=== PATIENT | female | born 1985 | race Two or more races ===

== ENCOUNTER 2016-08-20 17:58 | Emergency (ER) | payer BC, OTHER ==
[~2016-08-20] VITALS: Ht 147.3 cm; Wt 65.9 kg
[~2016-08-20 17:58] MED LIST: None per pt; PREN1TAB60 PO
[2016-08-20 18:40] LABS: HEMOGLOBIN 11.7 g/dL (11.7-16.4)
[2016-08-20 18:46] LABS: BLOOD UREA NITROGEN 7 mg/dL (7-18)
[2016-08-20] MEDS ORDERED: SODIUM CHLORIDE FLUSH 10ML SYR IVF ONE (19:30)
[2016-08-20] MEDS ORDERED: OMNIPAQUE 350 MG/ML, 100ML BOTTLE ONE (20:28)
[2016-08-20 21:39] VITALS: BP 102/54
== END 2016-08-20 21:43 | disposition home or self-care (01) ==
LOC: ED 21:36
DX: O26.892 Other specified pregnancy related conditions, second trimester (principal); R07.89 Other chest pain; K80.20 Calculus of gallbladder without cholecystitis without obstruction
CPT/HCPCS: 36415; 71010; 71275; 76700; 80048; 80076; 81001; 82040; 83690; 84484; 85025; 85379; 93005; 99285; Q9967

== ENCOUNTER 2016-10-24 17:19 | Outpatient (CLI) | payer BC ==
[~2016-10-24] VITALS: Ht 149.9 cm; Wt 67.2 kg
[2016-10-24 17:33] VITALS: BP 109/56
[2016-10-24] MEDS ORDERED: TERBUTALINE 1 MG/ML, 1ML ONE (17:56)
[2016-10-24] MEDS ORDERED: TERBUTALINE 1 MG/ML, 1ML IV ONE (18:00)
[2016-10-24] MEDS ORDERED: PLEASE ENTER HEIGHT AND WEIGHT MC SCH (18:30)
== END 2016-10-24 19:06 | disposition home or self-care (01) ==
LOC: LDOP 17:19
PROVIDERS: ATTEND Obstetrics & Gynecology
DX: O26.893 Other specified pregnancy related conditions, third trimester (principal); O62.9 Abnormality of forces of labor, unspecified; O60.03 Preterm labor without delivery, third trimester; R10.9 Unspecified abdominal pain; Z3A.36 36 weeks gestation of pregnancy
CPT/HCPCS: 59025; 81003; 87086; 96372; 99211; J3105; G0463

== ENCOUNTER 2016-11-11 16:30 | Outpatient (CLI) | payer BC ==
[~2016-11-11] VITALS: Ht 149.9 cm; Wt 68.2 kg
[2016-11-11 17:34] VITALS: BP 116/61
[2016-11-11] MEDS ORDERED: FAMO20TA37 PO (17:46)
[2016-11-11] MEDS ORDERED: ACET-1600 PO (17:47)
[2016-11-11 18:25] LABS: BLOOD UREA NITROGEN 7 mg/dL (7-18)
[2016-11-11 18:28] LABS: ASPARTATE AMINO TRANSFERASE 29 U/L (15-37)
[2016-11-11] MEDS ORDERED: MAGN400O4 PO (20:16)
[2016-11-11] MEDS ORDERED: RANI150T8 PO (20:18)
== END 2016-11-11 20:26 | disposition home or self-care (01) ==
LOC: LDOP 16:30
PROVIDERS: ATTEND Obstetrics & Gynecology
DX: O26.893 Other specified pregnancy related conditions, third trimester (principal); O26.833 Pregnancy related renal disease, third trimester; O26.613 Liver and biliary tract disorders in pregnancy, third trimester; K80.20 Calculus of gallbladder without cholecystitis without obstruction; N13.30 Unspecified hydronephrosis; N20.0 Calculus of kidney; Z3A.37 37 weeks gestation of pregnancy
CPT/HCPCS: 36415; 59025; 76705; 76770; 80053; 81001; 82150; 83690; 84550; 85025; 99211; G0463

== ENCOUNTER 2016-11-17 17:01 | Emergency (ER) | payer BC ==
[~2016-11-17] VITALS: Ht 149.9 cm; Wt 68.6 kg
[~2016-11-17 17:01] MED LIST changes: +ACET-1600 PO; +FAMO20TA37 PO; +MAGN400O4 PO; +RANI150T8 PO
[2016-11-17 17:02] VITALS: BP 122/75
== END 2016-11-17 18:19 | disposition short-term general hospital (02) ==
LOC: ED 17:14
DX: Z53.21 Procedure and treatment not carried out due to patient leaving prior to being seen by health care provider (principal)

== ENCOUNTER 2016-11-17 17:17 | Observation (INO) | payer BC ==
[~2016-11-17] VITALS: Ht 149.9 cm; Wt 68.3 kg
[2016-11-17 17:29] VITALS: BP 121/71
[2016-11-17] MEDS ORDERED: LACTATED RINGERS 1,000 ML IV SCH ×2 (18:00→18:30)
[2016-11-17] MEDS ORDERED: MAALOX/HYOSCYAMINE/LIDOCAINE 45 ML BOTTLE PO ONE (18:00)
[2016-11-17 18:25] LABS: ASPARTATE AMINO TRANSFERASE 82 U/L (15-37); BLOOD UREA NITROGEN 5 mg/dL (7-18)
[2016-11-17] MEDS ORDERED: MEPERIDINE/PF 100 MG/ML ONE (20:15)
[2016-11-17] MEDS ORDERED: PROMETHAZINE 25 MG/ML, 1ML ONE ×2 (20:15→21:37)
[2016-11-17] MEDS ORDERED: PROMETHAZINE 25 MG/ML, 1ML IM ONE (20:30)
[2016-11-17] MEDS ORDERED: MEPERIDINE/PF 100 MG/ML IM PRN (20:30)
== END 2016-11-17 21:10 | disposition home or self-care (01) ==
LOC: LDOP 17:17 → LDIP 17:55
PROVIDERS: ADMIT Obstetrics & Gynecology; ATTEND Obstetrics & Gynecology
DX: O26.899 Other specified pregnancy related conditions, unspecified trimester (principal); R10.30 Lower abdominal pain, unspecified; Z3A.00 Weeks of gestation of pregnancy not specified
CPT/HCPCS: 36415; 59025; 80053; 82150; 83690; 84550; 85025; 96360; 96361; 99211; G0378; J7120; G0463

== ENCOUNTER 2016-11-20 18:35 | Outpatient (CLI) | payer BC ==
[~2016-11-20] VITALS: Ht 149.9 cm; Wt 68.6 kg
== END 2016-11-20 19:41 | disposition home or self-care (01) ==
LOC: LDOP 18:35
PROVIDERS: ATTEND Obstetrics & Gynecology
DX: O46.93 Antepartum hemorrhage, unspecified, third trimester (principal); O26.893 Other specified pregnancy related conditions, third trimester; R10.9 Unspecified abdominal pain; Z3A.39 39 weeks gestation of pregnancy
CPT/HCPCS: 59025; 99211; G0463

== ENCOUNTER 2016-11-20 23:04 | Inpatient (IN) | payer BC ==
[~2016-11-20] VITALS: Ht 149.9 cm; Wt 68.5 kg
[2016-11-20] MEDS ORDERED: LACTATED RINGERS 1,000 ML IV SCH (23:21)
[2016-11-20] MEDS ORDERED: D5%-LACTATED RINGERS 1,000 ML IV SCH (23:21)
[2016-11-20] MEDS ORDERED: OXYTOCIN 30U/ 0.9% NaCL 500ML 500 ML IV ONE (23:21)
[2016-11-20] MEDS ORDERED: FENTANYL PF 100 MCG/2ML IV PRN (23:30)
[2016-11-20] MEDS ORDERED: ONDANSETRON 2MG/ML, 2ML IVPush PRN (23:30)
[2016-11-20] MEDS ORDERED: METOCLOPRAMIDE 5 MG/ML, 2ML IVPush PRN (23:30)
[2016-11-20] MEDS ORDERED: SODIUM CITRATE/CITRIC ACID 30 ML UDC PO PRN (23:30)
[2016-11-20] MEDS ORDERED: OXYTOCIN 30U/ 0.9% NaCL 500ML 500 ML ONE (23:33)
[2016-11-20] MEDS ORDERED: FENTANYL PF 100 MCG/2ML ONE (23:33)
[2016-11-20] MEDS ORDERED: NEWBORN KIT ONE (23:34)
[2016-11-20] MEDS: FENTANYL PF 100 MCG/2ML IVPush PRN (23:43)
[2016-11-20 23:46] VITALS: BP 125/58
[2016-11-21] MEDS ORDERED: FENTANYL/BUPIV./NS/PF 250 ML EPIDCONT ONE (00:05)
[2016-11-21] MEDS ORDERED: BUPIVACAINE/PF 0.25% ONE (00:05)
[2016-11-21] MEDS ORDERED: FENTANYL/BUPIV./NS/PF 250 ML EPIDCONT SCH (00:07)
[2016-11-21] MEDS ORDERED: LACTATED RINGERS 1,000 ML IV SCH (00:07)
[2016-11-21] MEDS ORDERED: EPHEDRINE 50 MG/ML, 1ML IVPush PRN (00:30)
[2016-11-21] MEDS ORDERED: LACTATED RINGERS 1,000 ML IVBOLUS PRN (00:30)
[2016-11-21] MEDS ORDERED: NALOXONE 0.4 MG/ML, 1ML IVPush PRN (00:30)
[2016-11-21] MEDS ORDERED: OXYTOCIN 30U/ 0.9% NaCL 500ML 500 ML IV PRN (03:00)
[2016-11-21] MEDS ORDERED: FENTANYL PF 100 MCG/2ML ONE (03:12)
[2016-11-21] MEDS: FENTANYL PF 100 MCG/2ML IVPush PRN (03:15)
[2016-11-21] MEDS: OXYTOCIN 30U/ 0.9% NaCL 500ML 500 ML IV SCH ×4 (06:46→16:55)
[2016-11-21] MEDS ORDERED: ONDANSETRON 2MG/ML, 2ML IV PRN (07:00)
[2016-11-21] MEDS ORDERED: OXYcodone/APAP 5/325MG TABLET PO PRN (07:00)
[2016-11-21] MEDS ORDERED: ACETAMINOPHEN 325 MG TABLET PO PRN (07:00)
[2016-11-21] MEDS ORDERED: METHYLERGONOVINE 0.2 MG/ML IM PRN (07:00)
[2016-11-21] MEDS ORDERED: MISOPROSTOL 200 MCG TABLET PR PRN (07:00)
[2016-11-21] MEDS ORDERED: IBUPROFEN 600 MG TABLET ONE (07:15)
[2016-11-21] MEDS: IBUPROFEN 600 MG TABLET PO PRN ×3 (07:17→19:44)
[2016-11-21] MEDS ORDERED: OXYTOCIN 30U/ 0.9% NaCL 500ML 500 ML ONE (07:25)
[2016-11-21 09:00] VITALS: BP 89/47
[2016-11-21] MEDS: PRENATAL VIT/IRON/FA 1 EACH TABLET PO SCH (09:00)
[2016-11-21] MEDS ORDERED: PRENATAL VIT/IRON/FA 1 EACH TABLET PO SCH (09:00)
[2016-11-21 10:15] VITALS: BP 81/42
[2016-11-21 14:06] LABS: DIFF TOTAL CELLS COUNTED 100 CELL DIFF
[2016-11-21 14:07] LABS: VERIFY COUNTS? YES
[2016-11-21 14:08] LABS: ANISOCYTOSIS 1+; LARGE PLATELETS 1+
[2016-11-21] MEDS: OXYcodone/APAP 5/325MG TABLET PO PRN ×2 (15:39→21:02)
[2016-11-21 15:50] VITALS: BP 91/52
[2016-11-21] MEDS: DOCUSATE 100 MG CAPSULE PO PRN (19:44)
[2016-11-21 20:40] VITALS: BP 96/49
[2016-11-21] MEDS ORDERED: DIPH,PERTUSS(ACELL),TET VAC/PF NC IM-VACC ONE (21:00)
[2016-11-21] MEDS ORDERED: MEASLES,MUMPS&RUBELLA VACC/PF 0.5 ML SQ-VACC ONE (21:00)
[2016-11-21] MEDS ORDERED: FAMOTIDINE 20 MG TABLET PO SCH ×2 (22:22→23:00)
[2016-11-21 23:46] VITALS: BP 83/49
[2016-11-22] MEDS: OXYcodone/APAP 5/325MG TABLET PO PRN ×2 (01:09→07:50)
[2016-11-22] MEDS: OXYTOCIN 30U/ 0.9% NaCL 500ML 500 ML IV SCH ×2 (02:46→02:55)
[2016-11-22 04:30] VITALS: BP 86/46
[2016-11-22] MEDS: IBUPROFEN 600 MG TABLET PO PRN (04:42)
[2016-11-22] MEDS: PRENATAL VIT/IRON/FA 1 EACH TABLET PO SCH (07:50)
[2016-11-22] MEDS: DOCUSATE 100 MG CAPSULE PO PRN (07:50)
[2016-11-22 08:00] VITALS: BP 79/44
[2016-11-22] MEDS ORDERED: OXYC-302 PO (12:37)
[2016-11-22] MEDS ORDERED: IBUP-1222 PO (12:43)
[2016-11-22] MEDS ORDERED: DOCU-30 PO (12:44)
== END 2016-11-22 13:29 | disposition home or self-care (01) | DRG 775 ==
LOC: LDOP 23:04 → LDIP 23:14 → 2NW 11-21 08:46
PROVIDERS: ADMIT Obstetrics & Gynecology; ATTEND Obstetrics & Gynecology
PROC: 10E0XZZ Delivery of Products of Conception, External Approach (ICD-10-PCS; principal; 2016-11-21)
PROC: 0KQM0ZZ Repair Perineum Muscle, Open Approach (ICD-10-PCS; 2016-11-21)
PROC: 10907ZC Drainage of Amniotic Fluid, Therapeutic from Products of Conception, Via Natural or Artificial Opening (ICD-10-PCS; 2016-11-21)
PROC: 00HU33Z Insertion of Infusion Device into Spinal Canal, Percutaneous Approach (ICD-10-PCS; 2016-11-21)
PROC: 3E0R3CZ (ICD-10-PCS; 2016-11-21)
DX: O69.81X0 Labor and delivery complicated by cord around neck, without compression, not applicable or unspecified (principal); Z37.0 Single live birth; Z3A.38 38 weeks gestation of pregnancy; O70.1 Second degree perineal laceration during delivery
CPT/HCPCS: 36415; 85025; 86850; 86900; 90715; J3010; J3490; J2590; J7120

== ENCOUNTER 2016-11-30 01:56 | Emergency (ER) | payer BC ==
[~2016-11-30] VITALS: Ht 152.4 cm; Wt 61.3 kg
[~2016-11-30 01:56] MED LIST changes: +DOCU-30 PO; +IBUP-1222 PO; +OXYC-302 PO
[2016-11-30 01:57] VITALS: BP 108/69
== END 2016-11-30 02:51 | disposition left against medical advice (07) ==
LOC: ED 02:45
DX: Z53.21 Procedure and treatment not carried out due to patient leaving prior to being seen by health care provider (principal)

== ENCOUNTER 2017-09-05 16:27 | Emergency (ER) | payer BC ==
[~2017-09-05] VITALS: Ht 149.9 cm; Wt 54.5 kg
[~2017-09-05 16:27] MED LIST changes: +DOCU-131 PO; -DOCU-30 PO; -MAGN400O4 PO; +MAGN400O7 PO; +RANI150T23 PO; -RANI150T8 PO
[2017-09-05 17:15] LABS: CULTURE INDICATED? YES; MICROSCOPIC INDICATED
[2017-09-05 17:16] LABS: BASOPHILS % (AUTO) 0 % (0-1); EOSINOPHILS # (AUTO) 0.04 x10^3/uL (0-0.4); EOSINOPHILS % (AUTO) 0 % (1-7); LYMPHOCYTES # (AUTO) 0.47 x10^3/uL (1-3.4); LYMPHOCYTES % (AUTO) 5 % (22-44); MD NO; MEAN CORPUSCULAR HEMOGLOBIN 30.6 pg (27.0-34.8); MEAN CORPUSCULAR HGB CONC 34.4 g/dL (32.4-35.8); MEAN PLATELET VOLUME 9.6 fL (7.4-10.4); MONOCYTES # (AUTO) 0.36 x10^3/uL (0.2-0.8); MONOCYTES % (AUTO) 4 % (2-9); NEUTROPHILS # (AUTO) 8.87 x10^3/uL (1.8-6.8); NEUTROPHILS % (AUTO) 91 % (42-75); PLATELET COUNT 214 x10^3/uL (130-400); RED CELL DISTRIBUTION WIDTH 12.6 % (9.6-15.2)
[2017-09-05 17:25] LABS: ALANINE AMINOTRANSFERASE 17 U/L (12-78); ALBUMIN 3.4 g/dL (3.4-5.0); ANION GAP 9 mmol/L (5-15); CALCIUM 8.6 mg/dL (8.5-10.1); CHLORIDE 104 mmol/L (98-107)
[2017-09-05 17:29] LABS: ALKALINE PHOSPHATASE 107 U/L (45-117); BILIRUBIN,TOTAL 0.5 mg/dL (0.2-1.0)
[2017-09-05] MEDS ORDERED: CEFTRIAXONE PMX 1GM/50ML 50 ML ONE (17:38)
[2017-09-05] MEDS ORDERED: SODIUM CHLORIDE 0.9%, 500ML IVBOLUS ONE (18:00)
[2017-09-05] MEDS ORDERED: CEFTRIAXONE PMX 1GM/50ML 50 ML IV ONE (18:00)
[2017-09-05] MEDS ORDERED: KETOROLAC 30 MG/1 ML ONE (18:29)
[2017-09-05] MEDS ORDERED: KETOROLAC 30 MG/1 ML IVPush ONE (18:30)
[2017-09-05 18:39] VITALS: BP 107/65
== END 2017-09-05 18:45 | disposition home or self-care (01) ==
LOC: ED 18:20
DX: N10 Acute pyelonephritis (principal)
CPT/HCPCS: 36415; 74176; 80053; 81001; 83605; 84703; 85025; 87040; 87077; 87086; 87186; 96365; 96375; 99285; J0696; J1885; J7040

== ENCOUNTER 2018-06-07 08:08 | Emergency (ER) | payer BC ==
[~2018-06-07] VITALS: Ht 149.9 cm; Wt 56.9 kg
--- NOTE | 2018-06-07 08:41 | NUR ---
pt to ultrasound at this time.
[2018-06-07 09:35] VITALS: BP 95/57
[2018-06-07 09:41] LABS: BASOPHILS # (AUTO) 0.02 x10^3/uL (0-0.1); BASOPHILS % (AUTO) 0 % (0-1); EOSINOPHILS % (AUTO) 2 % (1-7); LYMPHOCYTES # (AUTO) 1.24 x10^3/uL (1-3.4); LYMPHOCYTES % (AUTO) 19 % (22-44); MD NO; MEAN CORPUSCULAR HEMOGLOBIN 30.8 pg (27.0-34.8); MEAN CORPUSCULAR HGB CONC 34.3 g/dL (32.4-35.8); MEAN CORPUSCULAR VOLUME 89.8 fL (80-100); MEAN PLATELET VOLUME 8.4 fL (7.4-10.4); MONOCYTES # (AUTO) 0.38 x10^3/uL (0.2-0.8); MONOCYTES % (AUTO) 6 % (2-9); NEUTROPHILS # (AUTO) 4.75 x10^3/uL (1.8-6.8); NEUTROPHILS % (AUTO) 73 % (42-75); PLATELET COUNT 285 x10^3/uL (130-400); RED BLOOD COUNT 4.11 x10^6/uL (3.82-5.3); RED CELL DISTRIBUTION WIDTH 12.4 % (9.6-15.2)
[2018-06-07 09:47] LABS: ALBUMIN 2.8 g/dL (3.4-5.0); ANION GAP 8 mmol/L (5-15); CHLORIDE 110 mmol/L (98-107); CREATININE 0.63 mg/dL (0.55-1.02)
[2018-06-07 09:54] LABS: CULTURE INDICATED? YES; MICROSCOPIC INDICATED
== END 2018-06-07 10:32 | disposition home or self-care (01) ==
LOC: ED 09:33
DX: O20.0 Threatened abortion (principal)
CPT/HCPCS: 36415; 76801; 80048; 81001; 82040; 84702; 85025; 86901; 87086; 99284

== ENCOUNTER 2018-11-03 18:55 | Outpatient (CLI) | payer BC ==
[~2018-11-03] VITALS: Ht 149.9 cm; Wt 64.5 kg
[2018-11-03 20:16] LABS: MICROSCOPIC INDICATED
[2018-11-03 22:03] VITALS: BP 111/62
== END 2018-11-03 21:50 | disposition home or self-care (01) ==
LOC: LDOP 18:55
PROVIDERS: ATTEND Obstetrics & Gynecology
DX: O26.893 Other specified pregnancy related conditions, third trimester (principal); Z3A.30 30 weeks gestation of pregnancy
CPT/HCPCS: 59025; 81001; 87086; 99211; G0463

== ENCOUNTER 2018-11-08 07:35 | Outpatient (CLI) | payer BC ==
[~2018-11-08] VITALS: Ht 149.9 cm; Wt 65.0 kg
[2018-11-08 08:14] VITALS: BP 110/57
[2018-11-08 08:25] LABS: MICROSCOPIC INDICATED
== END 2018-11-08 08:40 | disposition home or self-care (01) ==
LOC: LDOP 07:35
PROVIDERS: ATTEND Obstetrics & Gynecology
DX: O46.93 Antepartum hemorrhage, unspecified, third trimester (principal); Z3A.31 31 weeks gestation of pregnancy
CPT/HCPCS: 59025; 81001; 87086; 99211; G0463

== ENCOUNTER 2018-12-12 07:18 | Inpatient (IN) | payer BC ==
[~2018-12-12] VITALS: Ht 149.9 cm; Wt 66.2 kg
[2018-12-13 12:00] VITALS: BP 108/63
== END 2018-12-13 15:25 | disposition home or self-care (01) | DRG 807 ==
LOC: LDOP 07:18 → LDIP 07:40 → 2NW 14:45
PROVIDERS: ADMIT Obstetrics & Gynecology; ATTEND Obstetrics & Gynecology
PROC: 10E0XZZ Delivery of Products of Conception, External Approach (ICD-10-PCS; principal; 2018-12-12)
PROC: 10907ZC Drainage of Amniotic Fluid, Therapeutic from Products of Conception, Via Natural or Artificial Opening (ICD-10-PCS; 2018-12-12)
PROC: 3E0R3BZ Introduction of Anesthetic Agent into Spinal Canal, Percutaneous Approach (ICD-10-PCS; 2018-12-12)
PROC: 00HU33Z Insertion of Infusion Device into Spinal Canal, Percutaneous Approach (ICD-10-PCS; 2018-12-12)
DX: O24.429 Gestational diabetes mellitus in childbirth, unspecified control (principal); Z37.0 Single live birth; Z3A.35 35 weeks gestation of pregnancy
CPT/HCPCS: 36415; J3490; 82803; 82947; 82962; 85025; 86850; 86900; G0378; J3010; J2590; J7120

== ENCOUNTER 2019-06-16 10:18 | Emergency (ER) | payer BC ==
[~2019-06-16] VITALS: Ht 149.9 cm; Wt 60.3 kg
[~2019-06-16 10:18] MED LIST changes: +HYDR-3240 PO; +RANI-467 PO; -RANI150T23 PO; +SENN-92 PO
[2019-06-16 10:26] VITALS: BP 122/76
[2019-06-16 11:38] LABS: MICROSCOPIC NOT IND
[2019-06-16 11:41] LABS: CULTURE INDICATED? NO
[2019-06-16 11:55] LABS: BASOPHILS # (AUTO) 0.03 x10^3/uL (0-0.1); BASOPHILS % (AUTO) 1 % (0-1); EOSINOPHILS # (AUTO) 0.23 x10^3/uL (0-0.4); EOSINOPHILS % (AUTO) 5 % (1-7); LYMPHOCYTES # (AUTO) 1.82 x10^3/uL (1-3.4); LYMPHOCYTES % (AUTO) 38 % (22-44); MD NO; MEAN CORPUSCULAR HEMOGLOBIN 30.5 pg (27.0-34.8); MEAN CORPUSCULAR HGB CONC 34.2 g/dL (32.4-35.8); MEAN CORPUSCULAR VOLUME 89.4 fL (80-100); MEAN PLATELET VOLUME 8.9 fL (7.4-10.4); MONOCYTES # (AUTO) 0.32 x10^3/uL (0.2-0.8); MONOCYTES % (AUTO) 7 % (2-9); NEUTROPHILS # (AUTO) 2.39 x10^3/uL (1.8-6.8); NEUTROPHILS % (AUTO) 50 % (42-75); PLATELET COUNT 276 x10^3/uL (130-400); RED BLOOD COUNT 4.31 x10^6/uL (3.82-5.3); RED CELL DISTRIBUTION WIDTH 13.1 % (9.6-15.2)
[2019-06-16 12:01] LABS: ALBUMIN 3.2 g/dL (3.4-5.0); ANION GAP 8 mmol/L (5-15); CALCIUM 8.7 mg/dL (8.5-10.1); CHLORIDE 111 mmol/L (98-107)
--- NOTE | 2019-06-16 12:05 | NUR ---
PT UPRIGHT ON GURNEY AWAKE & COMFORTABLE, WATCHING TV, NAD, RESPONDS APPROP TO STAFF, NO NEEDS AT THIS TIME, AT BS, CALL LIGHT WITHIN REACH.
[2019-06-16 12:07] LABS: ALANINE AMINOTRANSFERASE 11 U/L (12-78); ALKALINE PHOSPHATASE 111 U/L (45-117); BILIRUBIN,TOTAL 0.4 mg/dL (0.2-1.0); CREATININE 0.61 mg/dL (0.55-1.02); TOTAL PROTEIN 7.4 g/dL (6.4-8.2)
--- NOTE | 2019-06-16 13:56 | NUR ---
Patient given discharge instructions and they have confirmed that they understand the instructions. Patient ambulatory with steady gait.
== END 2019-06-16 14:20 | disposition home or self-care (01) ==
LOC: ED 14:00
DX: R10.31 Right lower quadrant pain (principal); R19.7 Diarrhea, unspecified; R11.0 Nausea
CPT/HCPCS: 36415; 74176; 80053; 81003; 83690; 84703; 85025; 99284